=== PATIENT | male | born 1945 | race Caucasian/White ===

== ENCOUNTER 2020-04-19 16:30 | Emergency (ER) | payer OTHER ==
[~2020-04-19] VITALS: Ht 180.3 cm; Wt 99.8 kg
[~2020-04-19 16:30] MED LIST: ACCUPRIL; ASCRIPTIN 325325 MG; ASPIRIN EC81 M1; ASPIRIN325 PO; BLOOD PRESSURE; CRESTOR40 MG PO; HYDROCODON-ACE1 EAC7 PO; NEXIUM; PLAVIX 75 MG TA75 MG; PROTONIX40 M2 PO; QUINAPRIL 20 MG20 MG PO; TOPROL XL25 MG PO
[2020-04-19 16:34] VITALS: BP 140/88
[2020-04-19] MEDS ORDERED: LIPITOR 20 MG T20 M1 PO ×2 (16:43→16:44)
[2020-04-19] MEDS ORDERED: PREDNISONE 20 M20 M1 PO (17:18)
== END 2020-04-19 17:27 | disposition home or self-care (01) ==
LOC: M.ERS 16:30
DX: L23.89 Allergic contact dermatitis due to other agents (principal); T36.8X5A Adverse effect of other systemic antibiotics, initial encounter; I10 Essential (primary) hypertension; E78.00 Pure hypercholesterolemia, unspecified; K21.9 Gastro-esophageal reflux disease without esophagitis; Z88.2 Allergy status to sulfonamides; Z79.82 Long term (current) use of aspirin; Z79.899 Other long term (current) drug therapy; Y92.89 Other specified places as the place of occurrence of the external cause

== ENCOUNTER → 2020-05-01 | Outpatient (CLI) | payer OTHER ==
[~2020-05-01] MED LIST changes: +LIPITOR 20 MG T20 M1 PO; +PREDNISONE 20 M20 M1 PO
== END ==
LOC: M.ULTRA 09:00
PROVIDERS: ATTEND Physician Assistant Medical
DX: N28.1 Cyst of kidney, acquired (principal); R94.5 Abnormal results of liver function studies; Z90.49 Acquired absence of other specified parts of digestive tract

== ENCOUNTER → 2021-03-19 | Outpatient (CLI) | payer OTHER | LOC: M.ULTRA 15:35 | DX: R22.9 Localized swelling, mass and lump, unspecified (principal) ==